=== PATIENT | female | born 1935 ===

== ENCOUNTER 2019-10-31 08:23 | Outpatient (CLI) | payer OTHER | END 2019-10-31 08:30 | disposition home or self-care (01) | LOC: LAB 08:23 | DX: I11.9 Hypertensive heart disease without heart failure (principal); E78.49 Other hyperlipidemia; Z15.89 Genetic susceptibility to other disease ==

== ENCOUNTER 2019-10-31 09:03 | Outpatient (CLI) | payer OTHER | END 2019-10-31 09:05 | disposition home or self-care (01) | LOC: RAD 09:03 | DX: M19.90 Unspecified osteoarthritis, unspecified site (principal) ==